=== PATIENT | male | born 1965 | race Caucasian/White ===

== ENCOUNTER → 2017-06-27 | Outpatient (CLI) | payer MEDICAID ==
[~2017-06-27] MED LIST: ACE325 PO; ALB18R INH; BENZ100C26 PO; CLIN300C99 PO; CODE118S5 PO; DICL-192 PO; DOXY-181 PO; DUL30 PO; IBU600 PO; MORS15 PO; PER PO; SOFO1TAB
== END ==
LOC: LAB 16:20
PROVIDERS: ATTEND Internal Medicine Gastroenterology
DX: B18.2 Chronic viral hepatitis C (principal)
CPT/HCPCS: 36415; 87522